=== PATIENT | female | born 1970 | race Caucasian/White ===

== ENCOUNTER 2018-03-27 15:00 | Emergency (ER) | payer SELFPAY ==
[~2018-03-27] VITALS: Ht 175.3 cm; Wt 83.2 kg
[~2018-03-27 15:00] MED LIST: IBUPROFEN200 M1 PO; MOTRIN800 MG PO; NAPROSYN500 MG PO; ORAJEL PO; PEN-VEE K,VEET500 MG PO; PERCOCET 5/31 TABLET PO; TRAMADOL HCL50 MG PO
[2018-03-27] MEDS ORDERED: MOTRIN800 MG PO (16:13)
[2018-03-27] MEDS ORDERED: PERCOCET 5/31 TABLET PO (16:13)
[2018-03-27 17:02] VITALS: BP 122/80
== END 2018-03-27 17:03 | disposition home or self-care (01) ==
LOC: EME 15:00
PROC: 2W3DX1Z Immobilization of Left Lower Arm using Splint (ICD-10-PCS; principal; 2018-03-27)
DX: S52.502A Unspecified fracture of the lower end of left radius, initial encounter for closed fracture (principal); W18.30XA Fall on same level, unspecified, initial encounter; Y93.H9 Activity, other involving exterior property and land maintenance, building and construction; Y92.007 Garden or yard of unspecified non-institutional (private) residence as the place of occurrence of the external cause
CPT/HCPCS: 73110; 99281; 99283; J3010